=== PATIENT | male | born 1955 | race Caucasian/White ===

== ENCOUNTER 2019-08-30 10:00 | Emergency (ER) | payer OTHER ==
[2019-08-30] MEDS ORDERED: ALBUTEROL INHALER 60 PUFF/8 GM IH ONE (11:13)
--- NOTE | 2019-08-30 11:27 | RAD REPORT ---
EXAM DESCRIPTION: RAD - Chest Single View - 08/30/2019 11:16 am CLINICAL HISTORY: Cough;SOB COMPARISON: None TECHNIQUE: AP portable chest image was obtained 08/30/2019 11:16 am . FINDINGS: Lung volumes are low. Left base atelectasis is present. There is minimal stranding and ate lectasis in the lower right lung field as well. Significant failure or volume overload are doubtful. Sternotomy wires are in place. Heart and vasculature are normal. Left costophrenic angle blunting is present possibly from atelectasis or minimal pleural effusion. No acute bony abnormality seen. No acu te aortic findings suspected. IMPRESSION: Limited portable study shows no significant failure or volume overload. Bilateral lung base atelectasis.
[2019-08-30 12:25] LABS: ALT/SGPT 34 U/L (12-78); AST/SGOT 27 U/L (15-37); Albumin 3.7 g/dL (3.4-5.0); Alkaline Phosphatase 99 U/L (45-117); BUN Blood Urea Nitrogen 26 mg/dL (7-18); Bicarbonate 26 mmol/L (21-32); Bilirubin Direct 0.3 mg/dL (0-0.2); Bilirubin Total 0.7 mg/dL (0.2-1.0); Glucose Level 209 mg/dL (74-106); Magnesium 2.5 mg/dL (1.8-2.4); NT PRO-BNP 355 pg/mL (<125); Potassium 4.5 mmol/L (3.5-5.1); Protein, Total 8.3 g/dL (6.4-8.2); Sodium Level 133 mmol/L (136-145); Troponin (Emerg Dept Use Only) < 0.02 ng/mL (0.0-0.045)
[2019-08-30 12:54] LABS: Absolute Lymphocytes (CBC) 1.5 K/uL (0.7-4.9); Basophils % 0.3 % (0-1.3); Hematocrit 40.4 % (39.6-49.0); Lymphocytes % 11.2 % (15.3-44.8); MPV 8.3 fL (7.6-11.3); Protime INR 1.08; RBC Red Blood Cell Count 4.31 M/uL (4.33-5.43)
[2019-08-30] MEDS ORDERED: MORPHINE 4 MG/ML SYR ONE (14:17)
[2019-08-30] MEDS ORDERED: ONDANSETRON 4 MG/2 ML VIAL ONE (14:17)
[2019-08-30] MEDS ORDERED: KETOROLAC 30 MG/ML INJ ONE (14:22)
[2019-08-30] MEDS ORDERED: METHYLPREDNISOLONE 125 MG INJ ONE (14:22)
--- NOTE | 2019-08-30 16:00 | ER ---
Nurse's Notes [facility] Name: Luisa Wallis Age: 64 yrs Sex: Male : 1955 Arrival Date: 08/30/2019 Time: 10:02 Bed 17 Private MD: Diagnosis: Shortness of breath;Chronic obstructive pulmonary disease with (acute) exacerbation Presentation: 08/29 10:14 Chief complaint: SOB, nonproductive cough, night sweats, body aches, and headache x 3 hb days. Coronavirus screen: Patient reports a cough. Patient reports shortness of breath or difficulty breathing. Patient reports a measured and/or subjective temperature greater than 100.4F. Patient denies travel on a cruise ship or to a country the [facility] currently lists as an affected area. Patient denies contact with known and/or suspected case of COVID-19. Patient instructed to continue to wear a mask when interacting with others. Patient moved to private room, placed in contact and droplet isolation with eye protection until further assessment. Ebola Screen: No symptoms or risks identified at this time. Risk Assessment: Do you want to hurt yourself or someone else? Patient reports no desire to harm self or others. Onset of symptoms was August 26, 2019. 10:14 Method Of Arrival: Wheelchair hb 10:14 Acuity: VALERIE 3 hb 14:43 Initial Sepsis Screen: Does the patient meet any 2 criteria? No. Patient's initial sepsis screen is negative. Does the patient have a suspected source of infection? No. Patient's initial sepsis screen is negative. Historical: - Allergies: 10:17 No Known Allergies; hb - PMHx: 10:17 myesthenia gravis; Diabetes - NIDDM; Hypertension; hb - Immunization history:: Adult Immunizations up to date. - Social history:: Smoking status: Patient denies any tobacco usage or history of. Screenin:10 Abuse screen: Denies threats or abuse. Nutritional screening: No deficits noted. Tuberculosis screening: No symptoms or risk factors identified. Fall Risk None identified. Assessment: 10:40 General: Appears uncomfortable, Behavior is calm, cooperative, appropriate for age. Pain: Denies pain. Neuro: Level of Consciousness is awake, alert, obeys commands, Oriented to person, place, time, situation, Appropriate for age. Cardiovascular: Capillary refill < 3 seconds Patient's skin is warm and dry. Cardiovascular: Rhythm is irregular. Respiratory: Reports shortness of breath at rest cough that is productive, Airway is patent Respiratory effort is even, unlabored, Respiratory pattern is regular, symmetrical. GI: Abdomen is obese. Derm: Skin is intact, Skin is dry. 11:45 Reassessment: Educated Pt on albuterol inhaler and the correct way to use it. Pt voiced ah understanding and return demonstration. 12:45 Reassessment: Patient and/or family updated on plan of care and expected duration. Pain ah level reassessed. Patient is alert, oriented x 3, equal unlabored respirations, skin warm/dry/pink. Awaiting on results. No needs voiced at this time. 14:16 Reassessment: Pt given Toradol and Solumedrol. No other needs voiced at this time. ah 15:15 Reassessment: Offered Pt Ativan to help him relax for the CT scan. Pt states that he ah does not want anymore medication and he already told us he wasn't going to have a CT scan. Notified provider. 15:52 Reassessment: pt RANG CALL MARTÍNEZ I ANSWERED IT. PT STATED HE WANTS TO GO. PT STATES HE ls4 DOESN'T WANT TESTS AND IS "GOING HOME". 16:16 Reassessment: I PERSONALLY STOOD OUTSIDE OF ROOM WHILE JONY PATIENTLY AND POLITELY ls4 SPOKE TO PT ABOUT POSSIBLE DIAGNOSES FOR SYMPTOMS, IMPORTANCE OF TESTS FOR ACCURATE DIAGNOSES AND TREATMENT AND OFFERING MEDICAL MEANS OF GETTING THROUGH THE TEST ANXIETY FOR THE PATIENT. JONY LEFT PT ROOM AND I ENTERED ROOM. PT USED RACIAL SLURS TO REFER TO JONY TIRE CORD WEAVER, AND POINTED IN HIS DIRECTION STATING HE WOULD COME BACK FOR HIM. I EXPLAINED TO PATIENT THAT I WAS LISTENING AND JONY IS TRYING TO TREAT HIM APPROPRIATELY BUT CANNOT WITHOUT PROPER TESTING. PT STATED HE IS GOING HOME. PT SIGNED AMA, REFUSED WHEEL CHAIR. AMBULATED INDEPENDENTLY TO EXIT WITHOUT DISTRESS. . Vital Signs: 10:14 BP 158 / 83; Pulse 102; Resp 24; Temp 99.2; Pulse Ox 97% on R/A; Weight 113.4 kg; hb Height 5 ft. 10 in. (177.80 cm); Pain 8/10; 11:33 BP 107 / 63; Pulse 106; Resp 18; Pulse Ox 97% ; ah 14:30 BP 136 / 80; Pulse 102; Resp 26; Pulse Ox 99% ; ah 15:30 BP 129 / 83; Pulse 101; Resp 20; Pulse Ox 99% ; ah 10:14 Body Mass Index 35.87 (113.40 kg, 177.80 cm) ED Course: 10:02 Patient arrived in ED. ag5 10:16 Triage completed. hb 10:17 Arm band placed on. hb 10:28 Jony Hillman, TIRE CORD WEAVER is PHCP. pm1 10:28 Delmer Beck MD is Attending Physician. pm1 10:42 Josie Corbin, JOSHUA is Primary Nurse. ca1 11:16 XRAY Chest (1 view) In Process Unspecified. EDMS 11:17 Note: LOU TO CALL CT WHEN BLOOD DRAWN FOR I STAT. bq 11:30 Missed attempt(s): 20 gauge in right antecubital area. Bleeding controlled, band aid applied, catheter tip intact. 12:00 Lou Dickson, RN is Primary Nurse. 12:04 Radiology exam delayed due to IV insertion attempt and/or patient not having bq appropriate IV at this time. 12:09 Inserted saline lock: 22 gauge in left antecubital area, using aseptic technique. 12:45 CT completed. PT UNABLE TO LAY DOWN EVEN ON INCLINE W/O DIFFICULTY BREATHING. PT STATES bq HE HAS BEEN SLEEPING IN AN UPRIGHT POSITION X'S 2 NITES. JONY NOTIFIED. Patient moved back from CT. 14:43 Patient has correct armband on for positive identification. Bed in low position. Call light in reach. Side rails up X 1. classroom monitor on. Pulse ox on. NIBP on. 14:43 No provider procedures requiring assistance completed. Administered Medications: 10:58 CANCELLED (Physician Discretion): Albuterol - atroVENT (3:1) (2.5 mg - 0.5 mg) 3 ml pm1 Nebulizer once 11:45 Drug: Albuterol HFA Inhaler 2 puffs Route: Inhalation; 14:38 Follow up: Response: No adverse reaction 14:08 Not Given (Physician Discretion): morphine 4 mg IVP once; RASS on ADMIN: Combtv4, Very pm1 Agttd3, Agttd2, Rstlss1, AlertClm0, Drwsy-1, Lt Sdtn-2, Mod Sdtn-3, Dp Sdtn-4, UnArsble-5 14:08 CANCELLED (Physician Discretion): Zofran (Ondansetron) 4 mg IVP once; over 2 minutes pm1 14:15 Drug: SOLU-Medrol 125 mg Route: IVP; Site: left antecubital; 15:20 Follow up: Response: No adverse reaction 14:16 Drug: TORadol - Ketorolac 15 mg Route: IVP; Site: left antecubital; 15:21 Follow up: Response: No adverse reaction 15:20 Not Given (Patient Refused): Ativan 1 mg IVP once Outcome: 16:15 AMA AMA form signed ls4 16:15 Condition: unchanged 16:15 Discharge instructions given to patient, Instructed on discharge instructions, follow up and referral plans. need for further testing, risks of refusing treatment and leaving AMA 16:24 Patient left the ED. ls4 Signatures: Dispatcher [employer] EDMS Gayatri Burnett Patrick, VANESSA TI[employer] C[employer] WEAVER pm1 Marcia Bowling RN Marlena Luna RN RN ls4 Josie Corbin RN RN Milan Nunez 5 Lou Dickson RN JOSHUA
--- NOTE | 2019-08-30 16:00 | EDPHYS ---
Physician Documentation [facility] Name: Luisa Wallis Age: 64 yrs Sex: Male : 1955 Arrival Date: 08/30/2019 Time: 10:02 Bed 17 Private MD: ED Physician Delmer Beck HPI: 08/29 10:53 This 64 yrs old Male presents to ER via Wheelchair with complaints of pm1 Constipation, Shortness Of Breath, Dizziness. 10:53 The patient has shortness of breath at rest. Onset: The symptoms/episode began/occurred pm1 3 day(s) ago. Duration: The symptoms are continuous. The patient's shortness of breath is aggravated by supine position, is alleviated by Tylenol and sitting up. Associated signs and symptoms: Pertinent positives: productive cough, dizziness, Body aches, Pertinent negatives: chest pain, fever, nausea, vomiting, Diarrhea. Severity of symptoms: in the emergency department the symptoms are unchanged. Reports similar symptoms about 8 years ago, but is unable to recall the diagnosis. Historical: - Allergies: 10:17 No Known Allergies; hb - PMHx: 10:17 myesthenia gravis; Diabetes - NIDDM; Hypertension; hb - Immunization history:: Adult Immunizations up to date. - Social history:: Smoking status: Patient denies any tobacco usage or history of. ROS: 10:53 Eyes: Negative for injury, pain, redness, and discharge, ENT: Negative for injury, pm1 pain, and discharge, Neck: Negative for injury, pain, and swelling, Cardiovascular: Negative for chest pain, palpitations, and edema. 10:53 Back: Negative for injury and pain, : Negative for injury, bleeding, discharge, and swelling, MS/Extremity: Negative for injury and deformity, Skin: Negative for injury, rash, and discoloration. 10:53 Constitutional: Positive for body aches, Negative for fever, poor PO intake. 10:53 Respiratory: Positive for cough, shortness of breath. 10:53 Abdomen/GI: Positive for abdominal pain, Constipation resolved yesterday with milk of magnesium. 10:53 Neuro: Positive for dizziness, Negative for headache, numbness, tingling, weakness. Exam: 10:53 Constitutional: This is a well developed, well nourished patient who is awake, alert, pm1 and in no acute distress. Head/Face: Normocephalic, atraumatic. Neck: Trachea midline, no thyromegaly or masses palpated, and no cervical lymphadenopathy. Supple, full range of motion without nuchal rigidity, or vertebral point tenderness. No Meningismus. Chest/axilla: Normal chest wall appearance and motion. Nontender with no deformity. No lesions are appreciated. Cardiovascular: Regular rate and rhythm with a normal S1 and S2. No gallops, murmurs, or rubs. Normal PMI, no JVD. No pulse deficits. Respiratory: Lungs have equal breath sounds bilaterally, clear to auscultation and percussion. No rales, rhonchi or wheezes noted. No increased work of breathing, no retractions or nasal flaring. Back: No spinal tenderness. No costovertebral tenderness. Full range of motion. 10:53 Skin: Warm, dry with normal turgor. Normal color with no rashes, no lesions, and no evidence of cellulitis. MS/ Extremity: Pulses equal, no cyanosis. Neurovascular intact. Full, normal range of motion. Neuro: Awake and alert, GCS 15, oriented to person, place, time, and situation. Cranial nerves II-XII grossly intact. Motor strength 5/5 in all extremities. Sensory grossly intact. Cerebellar exam normal. Normal gait. 10:53 Abdomen/GI: Inspection: abdomen appears normal, Palpation: soft, in all quadrants, mild abdominal tenderness, in the right upper quadrant and left upper quadrant, mass, is not appreciated, rebound tenderness, is not appreciated. Vital Signs: 10:14 BP 158 / 83; Pulse 102; Resp 24; Temp 99.2; Pulse Ox 97% on R/A; Weight 113.4 kg; hb Height 5 ft. 10 in. (177.80 cm); Pain 8/10; 11:33 BP 107 / 63; Pulse 106; Resp 18; Pulse Ox 97% ; ah 14:30 BP 136 / 80; Pulse 102; Resp 26; Pulse Ox 99% ; ah 15:30 BP 129 / 83; Pulse 101; Resp 20; Pulse Ox 99% ; ah 10:14 Body Mass Index 35.87 (113.40 kg, 177.80 cm) hb MDM: 10:29 Patient medically screened. raúl 13:16 Refusal of service: The patient/guardian displays adequate decision making capability pm1 and despite a detailed discussion of alternatives, benefits, risks, and consequences refuses: CT Scan, Patient went to CT with database technician, Gayatri, and he refused CT scan. Offered pain and antianxiety medications so that he can complete CT scan but patient refused. 13:47 ED course: ECG today compared to 07/10/2019 is unchanged . pm1 15:13 Refusal of service: The patient/guardian displays adequate decision making capability pm1 and despite a detailed discussion of alternatives, benefits, risks, and consequences refuses: CT Scan, Discussed patient's refusal of CT scan with Dr. Beck and he also recommended CT chest. Discussed my consultation with the patient and his recommendations. Patient continues to refuse the CT scan. 15:24 Data reviewed: vital signs. pm1 15:24 Differential diagnosis: CHF exacerbation, Chronic Obstructive Pulmonary Disease pm1 Myocardial Infarction pneumonia, pulmonary edema, Pulmonary Embolism , Pericarditis, COVID-19. 15:24 Differential diagnosis: Unspecified abdominal pain, bowel obstruction, constipation. pm1 15:25 Data interpreted: Pulse oximetry: on room air is 99 %. Interpretation: normal. pm1 15:25 Refusal of service: The patient/guardian displays adequate decision making capability pm1 and despite a detailed discussion of alternatives, benefits, risks, and consequences refuses: CT Scan, Patient is not willing to get CT scan of chest to rule out PE and CT scan of abdomen and pelvis. 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 Therefore my impression is COPD and will treat accordingly in the absence of CT imaging to rule out other causes for shortness of breath. 15:25 Refusal of service: The patient/guardian displays adequate decision making capability pm1 and despite a detailed discussion of alternatives, benefits, risks, and consequences refuses: CT Scan, Patient feels that he is unable to lay down flat for CT scans for the past 8 years since getting a thymectomy. Patient chest xray with bilateral lung base atelectasis. BNP 355 with a history of COPD and continued smoking history. Patient's O2 saturation 99% on room air. Patient does not appear to have a clinical indication for not being able to lay down for CT scan. 15:58 Counseling: I had a detailed discussion with the patient and/or guardian regarding: the pm1 historical points, exam findings, and any diagnostic results supporting the discharge/admit diagnosis, lab results, radiology results, the need for outpatient follow up, to return to the emergency department if symptoms worsen or persist or if there are any questions or concerns that arise at home. 08/29 10:53 Order name: Basic Metabolic Panel; Complete Time: 12:25 pm08/29 10:53 Order name: CBC with Diff; Complete Time: 13:14 pm08/29 10:53 Order name: LFT's; Complete Time: 12:25 pm08/29 10:53 Order name: Magnesium; Complete Time: 12:25 pm08/29 10:53 Order name: NT PRO-BNP; Complete Time: 12:25 pm08/29 10:53 Order name: PT-INR; Complete Time: 13:14 pm08/29 10:53 Order name: Troponin (emerg Dept Use Only); Complete Time: 12:25 pm08/29 10:53 Order name: XRAY Chest (1 view); Complete Time: 11:39 pm08/29 10:53 Order name: Flu; Complete Time: 12:25 pm08/29 10:53 Order name: Strep; Complete Time: 12:09 08/29 12:06 Order name: CREATININE WHOLE BLOOD; Complete Time: 12:07 [facility] 08/29 12:12 Order name: Throat Culture [facility] 08/29 10:53 Order name: EKG; Complete Time: 10:54 pm08/29 10:53 Order name: Cardiac monitoring; Complete Time: 11:11 08/29 10:53 Order name: EKG - Nurse/Tech; Complete Time: 12:08/29 10:53 Order name: IV Saline Lock; Complete Time: 12:09 08/29 10:53 Order name: Labs collected and sent; Complete Time: 12:08/29 10:53 Order name: O2 Per Protocol; Complete Time: 11:11 08/29 10:53 Order name: O2 Sat Monitoring; Complete Time: 11:11 08/29 10:53 Order name: Droplet/Contact Precautions; Complete Time: 11:11 08/29 12:11 Order name: Labs - recollect needed: recollect the blue top and lavender top; Complete eb Time: 14:06 Administered Medications: 10:58 CANCELLED (Physician Discretion): Albuterol - atroVENT (3:1) (2.5 mg - 0.5 mg) 3 ml pm1 Nebulizer once 11:45 Drug: Albuterol HFA Inhaler 2 puffs Route: Inhalation; ah 14:38 Follow up: Response: No adverse reaction ah 14:08 Not Given (Physician Discretion): morphine 4 mg IVP once; RASS on ADMIN: Combtv4, Very pm1 Agttd3, Agttd2, Rstlss1, AlertClm0, Drwsy-1, Lt Sdtn-2, Mod Sdtn-3, Dp Sdtn-4, UnArsble-5 14:08 CANCELLED (Physician Discretion): Zofran (Ondansetron) 4 mg IVP once; over 2 minutes pm1 14:15 Drug: SOLU-Medrol 125 mg Route: IVP; Site: left antecubital; ah 15:20 Follow up: Response: No adverse reaction 14:16 Drug: TORadol - Ketorolac 15 mg Route: IVP; Site: left antecubital; ah 15:21 Follow up: Response: No adverse reaction 15:20 Not Given (Patient Refused): Ativan 1 mg IVP once ah Disposition: 22:09 Co-signature as Attending Physician, Delmer Beck MD I agree with the assessment and raúl plan of care. Disposition: 08/30/19 16:00 Patient has left against medical advice. Impression: Shortness of breath, Chronic obstructive pulmonary disease with (acute) exacerbation. - Patients states they are going to Home. - Condition is Undetermined. - Discharge Instructions: How to Use an Inhaler, Shortness of Breath, Chronic Obstructive Pulmonary Disease Exacerbation. - Prescriptions for Levaquin 750 mg Oral Tablet - take 1 tablet by ORAL route once daily for 10 days; 10 tablet. Prednisone 20 mg Oral Tablet - take 3 tablet by ORAL route once daily for 5 days; 15 tablet. Albuterol Sulfate 90 mcg/actuation - inhale 1-2 puff by INHALATION route every 4-6 hours; 1 Inhaler. Follow up: Emergency Department; When: As needed; Reason: Worsening of condition. Follow up: Private Physician; When: Upon discharge from the Emergency Department; Reason: Recheck today's complaints, Continuance of care, Re-evaluation by your physician. - Problem is new. - Symptoms are unchanged. Signatures: Dispatcher [employer] EDDelmer Mccloud MD MD cha Marinas, Patrick, PATIENT ESCORT PATIENT ESCORT pm1 Marcia Bowling, RN RN Diane Caraballo Lisa, RN RN ls4 Lou Dickson RN RN Corrections: (The following items were deleted from the chart) 10:58 10:56 Albuterol - atroVENT (3:1) (2.5 mg - 0.5 mg) 3 ml Nebulizer once ordered. pm1 pm1 14:08 13:54 Zofran (Ondansetron) 4 mg IVP once; over 2 minutes ordered. pm1 pm1 16:24 16:00 08/30/2019 16:00 Patients has left against medical advice. Impression: Shortness ls4 of breath; Chronic obstructive pulmonary disease with (acute) exacerbation. Patient states they are going to Home. Condition is Undetermined. Discharge Instructions: How to Use an Inhaler, Shortness of Breath, Chronic Obstructive Pulmonary Disease Exacerbation. Prescriptions for Levaquin 750 mg Oral Tablet - take 1 tablet by ORAL route once daily for 10 days; 10 tablet, Prednisone 20 mg Oral Tablet - take 3 tablet by ORAL route once daily for 5 days; 15 tablet, Albuterol Sulfate 90 mcg/actuation - inhale 1-2 puff by INHALATION route every 4-6 hours; 1 InhalerFollow up: Emergency Department; When: As needed; Reason: Worsening of condition. Follow up: Private Physician; When: Upon discharge from the Emergency Department; Reason: Recheck today's complaints, Continuance of care, Re-evaluation by your physician. Problem is new. Symptoms are unchanged. pm1
[2019-08-30 16:30] VITALS: TEMP 99.2
[2019-08-30 16:33] VITALS: O2SAT 99
[2019-08-30 16:34] VITALS: BP 129/83
--- NOTE | 2019-08-31 07:27 | EKG ---
Test Date: 2019-08-30 Test Time: 11:16:48 Crib Clerk: TIN MEASUREMENT RESULTS: Intervals: Rate: 94 AR: 174 QRSD: 148 QT: 390 QTc: 487 [place]: P: 39 AR: 174 QRS: -59 T: 37 INTERPRETIVE STATEMENTS: Normal sinus rhythm Right bundle branch block Left anterior fascicular block Bifascicular block Abnormal ECG Compared to ECG 07/10/2019 12:58:09 Left anterior fascicular block now present Bifascicular block now present Left-axis deviation no longer present Electronically Signed On 08-31-19 07:25:08 CDT by Donnie Hurtado
== END 2019-08-30 16:24 | disposition left against medical advice (07) ==
LOC: ER 10:00
DX: J44.1 Chronic obstructive pulmonary disease with (acute) exacerbation (principal); I10 Essential (primary) hypertension; G70.00 Myasthenia gravis without (acute) exacerbation
CPT/HCPCS: 93005; 87070; 85025; 80048; 36415; 83735; 85610; 82565; 80076; 87081; 84484; 83880; 87804 ×2; 71045; 96375; 96374; 99285; J2930; J2405